=== PATIENT | female | born 1975 | race Caucasian/White ===

== ENCOUNTER 2017-10-21 05:38 | Inpatient (IN) | payer OTHER ==
--- NOTE | 2017-10-20 15:07 | MH ---
cc: LUCINDA CHAMBERLAIN DATE OF ADMISSION: 10/21/2017 HISTORY OF PRESENT ILLNESS She is 42-year-old, 2, para 0-0-1-0, intrauterine at 39 weeks and 5 days, breech presentation, scheduled for a . care has been with [place] [facility] uncomplicated. She is Rh negative. Received RhoGAM on 08/24/2017. She is group B strep positive. Her GCT was normal. PAST OBSTETRICAL HISTORY She has one termination of in 2015. PAST GYNECOLOGIC HISTORY She had a colposcopy and a LEEP in 2011. Her last Pap smear was normal in December of 2016. PAST MEDICAL HISTORY She has had a prolactinoma. PAST SURGICAL HISTORY She had a left breast biopsy and a LEEP performed. SOCIAL HISTORY She denies toxic habits. MEDICATIONS She takes vitamins. ALLERGIES She is allergic to ACTIFED. PHYSICAL EXAMINATION VITAL SIGNS: Stable. She is afebrile. Blood pressure is 140/72. She is 209 pounds. HEAD/HEART/CHEST/LUNG: Exams are within normal limits. ABDOMEN: Abdomen is soft, nontender, gravid. PELVIC: Cervix is closed and soft. EXTREMITIES: No edema, cyanosis, clubbing. Nontender. ASSESSMENT/PLAN She is 42-year-old, 2, para 0-0-1-0, intrauterine at 39 weeks and 5 days, breech presentation, for elective . She has been counseled on risks, benefits, alternatives and all of her questions have been answered. MD RATNA Garcia/GREG /2:12 PM /2:49 PM
[~2017-10-21] VITALS: Ht 157.5 cm; Wt 95.0 kg
[2017-10-21] VITALS (45 sets, daily range): BP systolic 114–190; BP diastolic 66–124; PULSE 71–107; RESP 16–19; TEMP 96.5–98.5; O2SAT 81–100
[2017-10-21] MEDS ORDERED: PREN29CH PO (06:15)
[2017-10-21 06:48] LABS: AUTOMATED NEUTROPHIL # 6.6 TH/MM3 (1.8-7.7); BASOPHIL % 0.4 % (0.0-2.0); EOSINOPHIL # 0.1 TH/MM3 (0-0.4); HEMATOCRIT 35.1 % (35.0-46.0); HEMO FLAGS DIFF FINAL; LYMPH % 32.1 % (9.0-44.0); LYMPHOCYTE # 3.6 TH/MM3 (1.0-4.8); MEAN CELL VOLUME 85.4 FL (80.0-100.0); MEAN CORPUSCULAR HEMOGLOBIN 29.2 PG (27.0-34.0); MEAN CORPUSCULAR HGB CONC 34.2 % (32.0-36.0); MONO % 6.7 % (0.0-8.0); NEUT % 59.8 % (16.0-70.0); PLATELET COUNT 267 TH/MM3 (150-450); RED BLOOD COUNT 4.11 MIL/MM3 (4.00-5.30); RED CELL DISTRIBUTION WIDTH 13.3 % (11.6-17.2); WHITE BLOOD COUNT 11.1 TH/MM3 (4.0-11.0)
[2017-10-21 06:55] LABS: BACTERIA, URINE FEW /hpf; BLOOD, URINE TRACE (NEG); COMMENT (UR) CULT NOT INDICATED; CULTURE IF INDICATED CULT NOT INDICATED; GLUCOSE,URINE NEG (NEG); HYALINE CAST, URINE 3 /lpf (RARE); KETONE, URINE NEG (NEG); MUCUS URINE FEW /lpf (OCC); NITRITE,URINE NEG (NEG); SQUAMOUS EPITHELIAL CELL URINE 2 /hpf (0-5); URINE COLOR YELLOW (YELLW/STRAW)
[2017-10-21] MEDS ORDERED: LACTATED RINGER'S 1000 ML IV SCH (07:00)
[2017-10-21] MEDS ORDERED: CITRIC ACID-SODIUM CITRATE LIQ 30 ML UDC PO SCH (07:00)
[2017-10-21] MEDS ORDERED: LACTATED RINGER'S 1000 ML IV ONE (07:00)
[2017-10-21] MEDS ORDERED: DEXAMETHASONE SOD PHOS PF 10 MG/ML VIAL ONE (07:14)
[2017-10-21] MEDS ORDERED: ROPIVACAINE 0.5% PF INJ 30 ML VIAL ONE (07:15)
[2017-10-21] MEDS ORDERED: ACETAMINOPHEN 1000 MG/100 ML 100 ML IV ONE ×3 (07:25→16:00)
[2017-10-21] MEDS ORDERED: ONDANSETRON HCL 4 MG/2 ML VIAL IV PUSH PRN ×2 (08:30→12:30)
[2017-10-21] MEDS ORDERED: ACETAMINOPHEN 325 MG TAB PO PRN (08:30)
[2017-10-21] MEDS ORDERED: DOCUSATE SODIUM 50 MG/SENNA 8.6 MG TAB PO PRN (08:30)
[2017-10-21] MEDS ORDERED: SODIUM CHLORIDE 0.9% FLUSH 10 ML FLUSH IV FLUSH PRN (08:30)
[2017-10-21] MEDS ORDERED: ZOLPIDEM TARTRATE 5 MG TAB PO PRN ×2 (08:30→21:00)
[2017-10-21] MEDS ORDERED: SIMETHICONE 80 MG CHEWABLE TAB PO PRN (08:30)
[2017-10-21] MEDS ORDERED: OXYTOCIN 30 UNITS-500ML PREMIX 500 ML IV ONE (08:30)
[2017-10-21] MEDS ORDERED: MEPERIDINE HCL 25 MG/ML VIAL ONE (08:52)
[2017-10-21] MEDS: SODIUM CHLORIDE 0.9% FLUSH 10 ML FLUSH IV FLUSH SCH ×2 (09:00→21:00)
[2017-10-21] MEDS ORDERED: NIFEdipine 10 MG CAP ONE (10:09)
--- NOTE | 2017-10-21 11:28 | MP ---
cc: LUCINDA REYNOLDS DATE OF SURGERY: 10/21/2017 PREOPERATIVE DIAGNOSIS Intrauterine at 39+ weeks, breech presentation, desires permanent sterilization. POSTOPERATIVE DIAGNOSIS Intrauterine at 39+ weeks, breech presentation, desires permanent sterilization. PROCEDURE Primary lower segment transverse section via Pfannenstiel skin incision, bilateral tubal ligation via modified [place] method. SURGEON Dr. Reynolds ANESTHESIA Spinal. FLUIDS 1200 ccs. ESTIMATED BLOOD LOSS 650 ccs. URINE OUTPUT 75 ccs clear yellow at the end of the procedure. FINDINGS A live female was delivered breech presentation, sacrum anterior, Apgars 8 at 1 minute, 9 at 5 minutes. weight 5 pounds 15 ounces. PROCEDURE The patient was taken to the operating room where spinal anesthesia was found to be adequate. She was then prepped and draped in the normal sterile fashion in the dorsal supine position with a leftward tilt. A Pfannenstiel skin incision was made with a scalpel and carried down to the underlying layer of fascia. The fascia was nicked in the midline. The incision was extended laterally with curved Deleon scissors. Attention was turned to the inferior aspect of the incision which was grasped with Marilou clamps, elevated and the rectus muscles dissected off sharply. Attention was turned to the superior aspect of the incision which was grasped with Marilou clamps, elevated and the rectus muscles dissected off sharply. The rectus muscles were in the midline. The peritoneum was identified, grasped between two Yue clamps, elevated and entered sharply with Metzenbaum scissors. This incision was extended superiorly and inferiorly with good visualization of the bladder. The bladder blade was inserted. The vesicouterine peritoneum was identified, grasped with pickups and entered sharply with Metzenbaum scissors. This incision was extended laterally and the bladder flap created digitally. The lower uterine segment was incised in a transverse fashion with a scalpel. The incision was extended laterally with bandaged scissors. The membranes were ruptured. Clear fluid was noted. The breech was delivered sacrum anterior. The shoulders were delivered atraumatically. The cord was clamped x2 and cut after reducing a nuchal cord x1. The infant was handed off to the waiting nurse. The placenta was delivered manually and sent for donation. The uterus was cleared of all clots and debris. The uterine incision was closed in two layers with one Vicryl. Hemostasis was assured. The left fallopian tube was identified, grasped with a Anjelica clamp, followed out to the fimbriated end. A 2-cm portion was tied x2 with O plain and excised, sent to pathology. Hemostasis was noted. The tube was returned to the abdomen. The right fallopian tube was then identified, grasped with a Culbertson clamp, followed out to the fimbriated end. A 2-cm portion was tied and excised in a similar fashion and sent to pathology. Hemostasis was noted. The tube was returned to the abdomen. The gutters were cleared of all clots and debris. The fascia was repaired in a running fashion with 0 Vicryl. The skin was closed with riddhi. A pressure dressing was applied. Sponge, lap, needle and instrument counts were correct x3. The patient was transferred to the recovery room in stable condition. MD RATNA Garcia/GREG /8:29 AM /11:11 AM
[2017-10-21] MEDS ORDERED: EPIDURAL-NO SYSTEMIC NARCOTICS PRN (11:45)
[2017-10-21] MEDS ORDERED: EPIDURAL-DIPHENHYDRAMINE HCL 50 MG/ML VIAL IV PUSH PRN (11:45)
[2017-10-21] MEDS ORDERED: EPIDURAL-DIPHENHYDRAMINE HCL 50 MG CAP PO PRN (11:45)
[2017-10-21] MEDS ORDERED: NIFEdipine 10 MG CAP PO ONE (11:45)
[2017-10-21] MEDS ORDERED: EPIDURAL-DO NOT ADMINISTER ANTICOAGULANTS PRN (11:45)
[2017-10-21] MEDS ORDERED: EPIDURAL-NALOXONE HCL 0.4 MG/ML AMP IV PUSH PRN (11:45)
[2017-10-21 12:20] LABS: ANION GAP 8 MEQ/L (5-15); AST (GOT) 22 U/L (15-37); BICARBONATE 23.8 MEQ/L (21.0-32.0); BLOOD UREA NITROGEN 9 MG/DL (7-18); CHLORIDE 106 MEQ/L (98-107); GLOMERULAR FILTRATION RATE 107 ML/MIN (>89); POTASSIUM 3.8 MEQ/L (3.5-5.1); SODIUM (NA) 138 MEQ/L (136-145)
[2017-10-21 12:23] LABS: ALKALINE PHOSPHATASE 182 U/L (45-117); ALT (GPT) 17 U/L (10-53); TOTAL BILIRUBIN ADULT 0.4 MG/DL (0.2-1.0)
[2017-10-21] MEDS ORDERED: MAGNESIUM SULFATE 4GRAM PRMIX-LOAD DOSE IV ONE (12:30)
[2017-10-21] MEDS ORDERED: CALCIUM GLUCONATE 10% 1 GM/10 ML VIAL IV PUSH PRN (12:30)
[2017-10-21] MEDS: LACTATED RINGER'S 1000 ML INJ 1,000 ML IV SCH ×2 (13:24→14:11)
[2017-10-21] MEDS: MAGNESIUM SULFATE 40 GM PREMIX 1,000 ML IV SCH (14:11)
[2017-10-21] MEDS ORDERED: OXYTOCIN 30 UNITS-500ML PREMIX 500 ML IV PRN (18:30)
[2017-10-22] VITALS (23 sets, daily range): BP systolic 117–171; BP diastolic 67–105; PULSE 63–86; RESP 16–19; TEMP 97.7–98.3; O2SAT 98
[2017-10-22] MEDS: IBUPROFEN 600 MG TAB PO PRN ×3 (01:00→19:02)
[2017-10-22] MEDS: oxyCODONE/ACETAMINOPHEN 5 MG/325 MG TAB PO PRN ×3 (01:00→19:02)
[2017-10-22] MEDS: LACTATED RINGER'S 1000 ML INJ 1,000 ML IV SCH ×4 (01:50→19:28)
[2017-10-22 08:12] LABS: AUTOMATED NEUTROPHIL # 9.1 TH/MM3 (1.8-7.7); BASOPHIL % 0.2 % (0.0-2.0); EOSINOPHIL % 0.2 % (0.0-4.0); HEMATOCRIT 29.2 % (35.0-46.0); HEMO FLAGS DIFF FINAL; LYMPH % 23.4 % (9.0-44.0); MEAN CELL VOLUME 86.2 FL (80.0-100.0); MEAN CORPUSCULAR HEMOGLOBIN 29.5 PG (27.0-34.0); MEAN CORPUSCULAR HGB CONC 34.2 % (32.0-36.0); NEUT % 70.2 % (16.0-70.0); PLATELET COUNT 239 TH/MM3 (150-450); RED BLOOD COUNT 3.39 MIL/MM3 (4.00-5.30); RED CELL DISTRIBUTION WIDTH 13.5 % (11.6-17.2); WHITE BLOOD COUNT 12.9 TH/MM3 (4.0-11.0)
[2017-10-22] MEDS: SODIUM CHLORIDE 0.9% FLUSH 10 ML FLUSH IV FLUSH SCH ×2 (09:00→19:25)
--- NOTE | 2017-10-22 09:10 | HHI.OB ---
Subjective Post Operative Day: 1 Remarks Patient did well, pain controlled, Dhillon in, SCDs on, and bed, denies headache, blurred vision, epigastric pain. Objective Vitals/I&O Vital Signs Date Time Temp Pulse Resp B/P (MAP) Pulse Ox O2 Delivery O2 Flow Rate FiO2 10/22/17 08:00 75 140/91 (107) 10/22/17 07:02 81 147/84 (105) 10/22/17 06:00 98.3 18 98 10/22/17 06:00 67 139/76 (97) 10/22/17 05:01 63 117/69 (85) 10/22/17 04:00 65 131/86 (101) 10/22/17 03:00 79 148/86 (106) 10/22/17 02:01 64 127/83 (98) 10/22/17 01:00 81 141/93 (109) 10/22/17 00:01 64 124/67 (86) 10/21/17 23:01 77 116/79 (91) 10/21/17 22:01 72 114/71 (85) 10/21/17 21:01 77 127/66 (86) 10/21/17 20:00 87 138/80 (99) 10/21/17 19:01 85 118/76 (90) 10/21/17 18:01 92 143/85 (104) 10/21/17 17:03 96 150/98 (115) 10/21/17 17:00 19 10/21/17 17:00 103 155/105 (122) 10/21/17 16:30 92 129/88 (102) 10/21/17 16:00 18 10/21/17 16:00 98 136/94 (108) 10/21/17 15:34 94 141/90 (107) 10/21/17 15:05 97.6 10/21/17 15:05 17 10/21/17 15:00 96 143/96 (112) 10/21/17 14:16 107 161/98 (119) 10/21/17 14:15 18 10/21/17 14:10 105 18 146/86 (106) 10/21/17 14:05 107 140/85 (103) 10/21/17 14:05 18 10/21/17 14:00 99 147/124 (132) 10/21/17 13:55 97 156/89 (111) 10/21/17 13:51 102 144/91 (108) 10/21/17 13:51 18 10/21/17 13:48 103 156/98 (117) 10/21/17 13:45 95 157/91 (113) 10/21/17 13:30 98 169/92 (117) 81 10/21/17 13:30 89 10/21/17 13:15 102 155/87 (109) 10/21/17 12:50 94 100 10/21/17 12:45 85 146/86 (106) 97 10/21/17 12:45 85 10/21/17 12:40 90 97 10/21/17 12:30 90 161/103 (122) 10/21/17 12:15 94 164/97 (119) 10/21/17 12:00 101 160/99 (119) 10/21/17 11:45 87 160/101 (120) 10/21/17 11:41 18 10/21/17 11:30 100 156/98 (117) 10/21/17 11:21 96 168/103 (124) 10/21/17 10:45 18 10/21/17 10:45 84 175/92 (119) 10/21/17 10:15 92 18 190/93 (125) 10/21/17 10:00 99 10/21/17 10:00 91 18 168/98 (121) 10/21/17 09:45 99 10/21/17 09:45 83 18 172/93 (119) 10/21/17 09:30 71 18 186/86 (119) 10/21/17 09:30 99 10/21/17 09:15 98.5 84 18 154/85 (108) 10/21/17 09:15 99 Result Diagram: 10/22/17 0720 10/21/17 0618 Objective Remarks GENERAL: Well-nourished, well-developed patient. CARDIOVASCULAR: Regular rate and rhythm without murmurs, gallops, or rubs. RESPIRATORY: Breath sounds equal bilaterally. No accessory muscle use. ABDOMEN/GI: Abdomen soft, non-tender, bowel sounds present. Bandage: Clean, dry and intact. Fundus: Firm, non-tender at umbilicus. GENITOURINARY: Light to moderate bleeding. EXTREMITIES: No cyanosis or edema, non-tender, without signs of DVT. Medications and IVs Current Medications Medications (Trade) Dose Ordered Sig/Giselle Route Start Time Stop Time Status Last Admin Lactated Ringer's 1,000 ml @ 100 mls/hr Q10H IV 10/21/17 13:24 10/22/17 09:23 Oxytocin 500 ml @ 100 mls/hr UNSCH X1 PRN IV 10/21/17 18:30 10/22/17 18:29 (NS Flush) 2 ml BID IV FLUSH 10/21/17 09:00 10/21/17 21:00 (NS Flush) 2 ml UNSCH PRN IV FLUSH 10/21/17 08:30 (Mylicon Chew) 80 mg QID PRN PO 10/21/17 08:30 (Tylenol) 650 mg Q6H PRN PO 10/21/17 08:30 (Motrin) 600 mg Q6H PRN PO 10/21/17 08:30 10/22/17 01:00 (Percocet 5-325 Mg) 1 tab Q4H PRN PO 10/21/17 08:30 (Percocet 5-325 Mg) 2 tab Q4H PRN PO 10/21/17 08:30 10/22/17 01:00 (Aminta-Colace) 2 tab Q12H PRN PO 10/21/17 08:30 (Ambien) 5 mg HS PRN PO 10/21/17 08:30 (M-M-R Ii Inj) 0.5 ml ONCE ONCE SQ 10/22/17 16:00 10/22/17 16:01 (Boostrix Inj) 0.5 ml ONCE ONCE IM 10/22/17 16:00 10/22/17 16:01 (Zofran Inj) 4 mg Q6H PRN IV PUSH 10/21/17 08:30 Miscellaneous Information NO SYSTEMIC NARCOTICS TO BE GIVEN FO... UNSCH PRN .XX 10/21/17 11:45 10/22/17 11:44 (Narcan Inj) 0.4 mg UNSCH PRN IV PUSH 10/21/17 11:45 10/22/17 11:44 (Benadryl Inj) 25 mg Q6H PRN IV PUSH 10/21/17 11:45 10/22/17 11:44 (Benadryl) 50 mg Q6H PRN PO 10/21/17 11:45 10/22/17 11:44 Miscellaneous Information ALL NURSING DEPARTMENTS UNSCH PRN .XX 10/21/17 11:45 10/22/17 11:44 Lactated Ringer's 1,000 ml @ 75 mls/hr [id number] IV 10/21/17 12:30 10/22/17 01:50 Magnesium Sulfate 1,000 ml @ 50 mls/hr Q20H IV 10/21/17 12:30 10/21/17 14:11 (Zofran Inj) 4 mg Q6H PRN IV PUSH 10/21/17 12:30 (Ambien) 5 mg HS PRN PO 10/21/17 21:00 (Calcium Gluconate Inj) 1 gm UNSCH PRN IV PUSH 10/21/17 12:30 Assessment/Plan Assessment and Plan 42-year-old 011 status post primary low transverse and bilateral tubal ligation at 39 weeks for malpresentation 1. Postoperative day #1: Vital signs stable, meeting milestones, output appropriate. Am labs appropriate as well. Continue routine post operative care. KATIE Dhillon later today - Female . 2. Preeclampsia severe features: Continue back 24 hours, off today at 1400, mag level this morning 7.1, HELLP labs on arrival within normal limits, P: See 1.44. Blood pressures have delivered and occasional severe overnight, will begin Procardia 30 XL daily. 3. Trey Mortensen MD Oct 22, 2017 09:10
[2017-10-22] MEDS: NIFEdipine 30 MG SUSTAINED RELEASE TAB PO SCH (09:40)
[2017-10-22] MEDS: MAGNESIUM SULFATE 40 GM PREMIX 1,000 ML IV SCH (09:46)
[2017-10-22] MEDS ORDERED: DIPHTH/TETANUS/ACEL PERTUSSIS (BOOSTER) 0.5 ML VIAL/PFS IM ONE (16:00)
[2017-10-22] MEDS ORDERED: MEASLES, MUMPS, RUBELLA VACCINE 0.5 ML VIAL SQ ONE (16:00)
[2017-10-22] MEDS ORDERED: PERC5TAB12 PO (17:06)
[2017-10-22] MEDS ORDERED: NIFE30TA8 PO (17:06)
--- NOTE | 2017-10-22 17:07 | HHI.DCPOC ---
Discharge Care Plan Diagnosis: (1) Pre-eclampsia (2) delivery delivered Your Health Problems Are: delivery Report Symptoms to Your Doctor -Temperature above 100.5 degrees -Redness, of incision or excessive or foul smelling drainage -Unusual pain or calf pain -Increased vaginal bleeding -Painful or difficulty urinating -Feelings of extreme sadness or anxiety after 2 weeks Goals to Promote Your Health * To prevent worsening of your condition and complications * To maintain your health at the optimal level Directions to Meet Your Goals Take your medications as prescribed Follow your dietary instruction Follow activity as directed Ensure plenty of rest for recovery Drink fluids for hydration Keep your appointments as scheduled Take your immunizations and boosters as scheduled If your symptoms worsen call your PCP, if no PCP go to Urgent Care Center or Emergency Room Smoking is Dangerous to Your Health. Avoid second hand smoke Call the 24-hour crisis hotline for domestic abuse at Trey Mortensen MD Oct 22, 2017 17:07
[2017-10-23] VITALS: BP 135/72; PULSE 62; RESP 18; TEMP 98.2
[2017-10-23] MEDS: IBUPROFEN 600 MG TAB PO PRN ×4 (01:42→22:06)
[2017-10-23] MEDS: oxyCODONE/ACETAMINOPHEN 5 MG/325 MG TAB PO PRN ×4 (01:42→22:06)
[2017-10-23 04:00] VITALS: BP 146/89; PULSE 66; RESP 16; TEMP 98.1
[2017-10-23 08:00] VITALS: BP 156/104; PULSE 82; RESP 16; TEMP 97.8; O2SAT 99
--- NOTE | 2017-10-23 09:15 | HHI.OB ---
Subjective Post Operative Day: 2 Remarks doing well, pain controlled, VB < menses, no headaches, blurry vision, epigastric pain, voiding, TPO no n/v Objective Vitals/I&O Vital Signs Date Time Temp Pulse Resp B/P (MAP) Pulse Ox O2 Delivery O2 Flow Rate FiO2 10/23/17 08:00 97.8 82 16 156/104 (121) 99 10/23/17 04:00 98.1 66 16 146/89 (108) 10/23/17 00:00 98.2 10/23/17 00:00 62 18 135/72 (93) 10/22/17 20:00 97.9 71 18 158/88 (111) 98 10/22/17 18:15 98.1 10/22/17 18:15 76 16 136/85 (102) 98 10/22/17 15:00 139/91 (107) 10/22/17 14:10 169/103 (125) 10/22/17 14:07 171/105 (127) 10/22/17 14:00 97.7 76 18 159/101 (120) 10/22/17 13:01 72 154/92 (112) 10/22/17 12:01 79 149/97 (114) 10/22/17 12:00 18 10/22/17 11:01 70 129/73 (91) 10/22/17 11:00 19 10/22/17 10:00 86 149/99 (116) 10/22/17 10:00 18 Intake & Output 10/23/17 10/23/17 07:00 19:00 Intake Total 0 ml Balance 0 ml Blood Product IV Normal Saline Flush 0 ml Result Diagram: 10/22/17 0720 10/21/17 0618 Objective Remarks GENERAL: Well-nourished, well-developed patient. CARDIOVASCULAR: Regular rate and rhythm without murmurs, gallops, or rubs. RESPIRATORY: Breath sounds equal bilaterally. No accessory muscle use. ABDOMEN/GI: Abdomen soft, non-tender, bowel sounds present. Bandage: Clean, dry and intact. Fundus: Firm, non-tender at umbilicus. GENITOURINARY: Light to moderate bleeding. EXTREMITIES: No cyanosis or edema, non-tender, without signs of DVT. Medications and IVs Current Medications Medications (Trade) Dose Ordered Sig/Giselle Route Start Time Stop Time Status Last Admin (NS Flush) 2 ml BID IV FLUSH 10/21/17 09:00 10/21/17 21:00 (NS Flush) 2 ml UNSCH PRN IV FLUSH 10/21/17 08:30 (Mylicon Chew) 80 mg QID PRN PO 10/21/17 08:30 (Tylenol) 650 mg Q6H PRN PO 10/21/17 08:30 (Motrin) 600 mg Q6H PRN PO 10/21/17 08:30 10/23/17 01:42 (Percocet 5-325 Mg) 1 tab Q4H PRN PO 10/21/17 08:30 10/22/17 12:23 (Percocet 5-325 Mg) 2 tab Q4H PRN PO 10/21/17 08:30 10/23/17 01:42 (Aminta-Colace) 2 tab Q12H PRN PO 10/21/17 08:30 (Ambien) 5 mg HS PRN PO 10/21/17 08:30 (Zofran Inj) 4 mg Q6H PRN IV PUSH 10/21/17 08:30 Lactated Ringer's 1,000 ml @ 75 mls/hr [id number] IV 10/21/17 12:30 10/22/17 01:50 (Zofran Inj) 4 mg Q6H PRN IV PUSH 10/21/17 12:30 (Ambien) 5 mg HS PRN PO 10/21/17 21:00 (Calcium Gluconate Inj) 1 gm UNSCH PRN IV PUSH 10/21/17 12:30 (Procardia Xl) 30 mg DAILY PO 10/22/17 09:30 10/22/17 09:40 Assessment/Plan Assessment and Plan 42-year-old status post primary low transverse and bilateral tubal ligation at 39 weeks for malpresentation 1. Postoperative day #2: Vital signs stable, meeting milestones, output appropriate. Continue routine post operative care. Remove riddhi tomorrow. - Female . 2. Preeclampsia severe features: Continue Procardia XL 30mg qd, BPs mostly mild range, sometime hovering 150s systolic, pt asymptomatic, observe through tomorrow. FU 1 week after d/c for BP check. Trey Mortensen MD Oct 23, 2017 09:15
[2017-10-23] MEDS: NIFEdipine 30 MG SUSTAINED RELEASE TAB PO SCH (09:44)
[2017-10-23 17:00] VITALS: BP 130/81; PULSE 80; RESP 18; TEMP 97.8; O2SAT 98
[2017-10-23] MEDS: LACTATED RINGER'S 1000 ML INJ 1,000 ML IV SCH ×2 (17:50→19:07)
[2017-10-23] MEDS: SODIUM CHLORIDE 0.9% FLUSH 10 ML FLUSH IV FLUSH SCH (19:12)
[2017-10-23 20:00] VITALS: BP 156/95; PULSE 84; RESP 22; TEMP 98.5
[2017-10-23 22:00] VITALS: BP 150/87; PULSE 79
[2017-10-24] VITALS (7 sets, daily range): BP systolic 139–163; BP diastolic 77–100; PULSE 71–98; RESP 13–18; TEMP 97.7–98.4; O2SAT 98
[2017-10-24] MEDS: IBUPROFEN 600 MG TAB PO PRN ×4 (04:07→23:33)
[2017-10-24] MEDS: oxyCODONE/ACETAMINOPHEN 5 MG/325 MG TAB PO PRN ×4 (04:08→23:33)
--- NOTE | 2017-10-24 08:11 | HHI.OB ---
Subjective Post Operative Day: 3 Remarks pt doing well, pain controlled, scant VB, no headaches, blurry vision, epigastric pain, TPO no n/v, + Flatus. Objective Vitals/I&O Vital Signs Date Time Temp Pulse Resp B/P (MAP) Pulse Ox O2 Delivery O2 Flow Rate FiO2 10/24/17 04:00 98.4 71 16 144/85 (104) 98 10/23/17 22:00 79 150/87 (108) 10/23/17 20:00 84 22 156/95 (115) 10/23/17 20:00 98.5 10/23/17 17:00 97.8 80 18 98 10/23/17 17:00 130/81 (97) Result Diagram: 10/22/17 0720 10/21/17 0618 Objective Remarks GENERAL: Well-nourished, well-developed patient. CARDIOVASCULAR: Regular rate and rhythm without murmurs, gallops, or rubs. RESPIRATORY: Breath sounds equal bilaterally. No accessory muscle use. ABDOMEN/GI: Abdomen soft, non-tender, bowel sounds present. incision Clean, dry and intact with riddhi. Fundus: Firm, non-tender at umbilicus. GENITOURINARY: Light to moderate bleeding. EXTREMITIES: No cyanosis or edema, non-tender, without signs of DVT. Medications and IVs Current Medications Medications (Trade) Dose Ordered Sig/Giselle Route Start Time Stop Time Status Last Admin (NS Flush) 2 ml BID IV FLUSH 10/21/17 09:00 10/21/17 21:00 (NS Flush) 2 ml UNSCH PRN IV FLUSH 10/21/17 08:30 (Mylicon Chew) 80 mg QID PRN PO 10/21/17 08:30 (Tylenol) 650 mg Q6H PRN PO 10/21/17 08:30 (Motrin) 600 mg Q6H PRN PO 10/21/17 08:30 10/24/17 04:07 (Percocet 5-325 Mg) 1 tab Q4H PRN PO 10/21/17 08:30 10/23/17 16:29 (Percocet 5-325 Mg) 2 tab Q4H PRN PO 10/21/17 08:30 10/24/17 04:08 (Aminta-Colace) 2 tab Q12H PRN PO 10/21/17 08:30 (Ambien) 5 mg HS PRN PO 10/21/17 08:30 (Zofran Inj) 4 mg Q6H PRN IV PUSH 10/21/17 08:30 Lactated Ringer's 1,000 ml @ 75 mls/hr [id number] IV 10/21/17 12:30 10/22/17 01:50 (Zofran Inj) 4 mg Q6H PRN IV PUSH 10/21/17 12:30 (Ambien) 5 mg HS PRN PO 10/21/17 21:00 (Calcium Gluconate Inj) 1 gm UNSCH PRN IV PUSH 10/21/17 12:30 (Procardia Xl) 30 mg DAILY PO 10/22/17 09:30 10/23/17 09:44 Assessment/Plan Assessment and Plan 42-year-old status post primary low transverse and bilateral tubal ligation at 39 weeks for malpresentation 1. Postoperative day #3: Vital signs stable, meeting milestones, output appropriate. Continue routine post operative care. Remove riddhi and replace with steris today. - Female . 2. Preeclampsia severe features: BP severe this AM, per nursing 170/100, asked her to recheck now, may need tx, if still elevated then will increase procardia and observe till tomorrow, if mild range into the afternoon pt can d/c home and check BP at home 2x /day. - On Procardia XL 30mg qd, - discussed PREC sx and need to call office if these occur and will have her return 1 week for BP check. Trey Mortensen MD Oct 24, 2017 08:11
[2017-10-24] MEDS: NIFEdipine 30 MG SUSTAINED RELEASE TAB PO SCH (08:26)
[2017-10-24] MEDS ORDERED: NIFEdipine 10 MG CAP PO STA (11:28)
[2017-10-24] MEDS ORDERED: NIFEdipine 30 MG SUSTAINED RELEASE TAB PO ONE (11:30)
[2017-10-24] MEDS ORDERED: SODIUM CHLORIDE 0.9% FLUSH 10 ML FLUSH IV FLUSH PRN (11:30)
[2017-10-24] MEDS ORDERED: SODIUM CHLORIDE 0.9% FLUSH 10 ML FLUSH IV FLUSH SCH (21:00)
[2017-10-25 05:31] VITALS: BP 125/85; PULSE 78; RESP 18
[2017-10-25] MEDS: IBUPROFEN 600 MG TAB PO PRN (05:46)
[2017-10-25] MEDS: oxyCODONE/ACETAMINOPHEN 5 MG/325 MG TAB PO PRN (05:46)
[2017-10-25] MEDS ORDERED: NIFEdipine 30 MG SUSTAINED RELEASE TAB PO SCH (06:00)
[2017-10-25 07:40] VITALS: BP 140/88; PULSE 105; RESP 15; TEMP 98; O2SAT 98
--- NOTE | 2017-10-25 08:28 | HHI.OB ---
Subjective Post Operative Day: 4 Remarks doing well, breast and bottlefeeding Objective Vitals/I&O Vital Signs Date Time Temp Pulse Resp B/P (MAP) Pulse Ox O2 Delivery O2 Flow Rate FiO2 10/25/17 07:40 98.0 105 15 140/88 (105) 98 10/25/17 05:31 78 125/85 (98) 10/25/17 05:31 18 10/24/17 19:30 98 10/24/17 19:29 139/77 (97) 10/24/17 19:29 98.4 13 10/24/17 16:50 98.1 95 18 153/88 (109) 10/24/17 12:15 97.7 10/24/17 12:15 87 16 150/92 (111) 10/24/17 11:20 98.1 90 16 163/92 (115) 10/24/17 08:50 98.4 78 18 162/100 (120) Result Diagram: 10/22/17 0720 10/21/17 0618 Objective Remarks GENERAL: Well-nourished, well-developed patient. CARDIOVASCULAR: Regular rate and rhythm without murmurs, gallops, or rubs. RESPIRATORY: Breath sounds equal bilaterally. No accessory muscle use. ABDOMEN/GI: Abdomen soft, non-tender, bowel sounds present. incision Clean, dry and intact with riddhi. Fundus: Firm, non-tender at umbilicus. GENITOURINARY: Light to moderate bleeding. EXTREMITIES: No cyanosis or edema, non-tender, without signs of DVT. Medications and IVs Current Medications Medications (Trade) Dose Ordered Sig/Giselle Route Start Time Stop Time Status Last Admin (NS Flush) 2 ml BID IV FLUSH 10/21/17 09:00 10/21/17 21:00 (NS Flush) 2 ml UNSCH PRN IV FLUSH 10/21/17 08:30 (Mylicon Chew) 80 mg QID PRN PO 10/21/17 08:30 (Tylenol) 650 mg Q6H PRN PO 10/21/17 08:30 (Motrin) 600 mg Q6H PRN PO 10/21/17 08:30 10/25/17 05:46 (Percocet 5-325 Mg) 1 tab Q4H PRN PO 10/21/17 08:30 10/25/17 05:46 (Percocet 5-325 Mg) 2 tab Q4H PRN PO 10/21/17 08:30 10/24/17 04:08 (Aminta-Colace) 2 tab Q12H PRN PO 10/21/17 08:30 (Ambien) 5 mg HS PRN PO 10/21/17 08:30 (Zofran Inj) 4 mg Q6H PRN IV PUSH 10/21/17 08:30 Lactated Ringer's 1,000 ml @ 75 mls/hr [id number] IV 10/21/17 12:30 10/22/17 01:50 (Zofran Inj) 4 mg Q6H PRN IV PUSH 10/21/17 12:30 (Ambien) 5 mg HS PRN PO 10/21/17 21:00 (Calcium Gluconate Inj) 1 gm UNSCH PRN IV PUSH 10/21/17 12:30 (Procardia Xl) 60 mg DAILY@0600 PO 10/25/17 06:00 10/25/17 05:47 (NS Flush) 2 ml UNSCH PRN IV FLUSH 10/24/17 11:30 (NS Flush) 2 ml BID IV FLUSH 10/24/17 21:00 Assessment/Plan Problem List: (1) delivery delivered ICD Codes: O82 - Encounter for delivery without indication (2) Pre-eclampsia ICD Codes: O14.90 - Unspecified pre-eclampsia, unspecified trimester Qualifiers: Qualified Codes: O14.93 - Unspecified pre-eclampsia, third trimester Assessment and Plan 42-year-old status post primary low transverse and bilateral tubal ligation at 39 weeks for malpresentation 1. Postoperative day #4 Vital signs stable, meeting milestones, output appropriate. Continue routine post operative care. Remove riddhi and replace with steris today. - Female . 2. Preeclampsia severe features: anticipate BP to normalize . - On Procardia XL 30mg qd, - will have her return 1 week for BP check. Discharge Planning today Attending Attestation pt seen by Liya Cole MD Oct 25, 2017 08:28
[2017-10-25] MEDS ORDERED: NIFE30TA8 PO (08:30)
== END 2017-10-25 10:37 | disposition home or self-care (01) | DRG 766 ==
LOC: H2EB 05:38 → H1EA 10-22 13:36
PROVIDERS: ADMIT Obstetrics & Gynecology; ATTEND Obstetrics & Gynecology
PROC: 10D00Z1 Extraction of Products of Conception, Low, Open Approach (ICD-10-PCS; principal; 2017-10-21)
PROC: 0UB70ZZ Excision of Bilateral Fallopian Tubes, Open Approach (ICD-10-PCS; 2017-10-21)
DX: O32.1XX0 Maternal care for breech presentation, not applicable or unspecified (principal); O99.824 Streptococcus B carrier state complicating childbirth; O14.14 Severe pre-eclampsia complicating childbirth; O69.81X0 Labor and delivery complicated by cord around neck, without compression, not applicable or unspecified; Z37.0 Single live birth; Z30.2 Encounter for sterilization; Z3A.39 39 weeks gestation of pregnancy
CPT/HCPCS: 59025; 80053; 80307; 81001; 82570; 83735; 84156; 84550; 85025; 85461; 86850; 86900; 86901; 88302; 90384; 90715; J0131; J1100; J2175; J2590; J2790; J2795; J3475; J7120